=== PATIENT | female | born 2000 | race Two or more races ===

== ENCOUNTER 2024-04-08 11:19 | Emergency (ER) | payer MEDICAID, SELFPAY ==
[2024-04-08 11:20] VITALS: BMI 32.5
[2024-04-08 11:41] VITALS: BP 159/99; PULSE 94; RESP 17; TEMP 36.8; O2SAT 100
--- NOTE | 2024-04-08 11:47 | PD.EDBACK ---
ED Back Injury Pain RME/HPI General Chief Complaint: Back Pain/Injury Stated Complaint: BACK PAIN Time Seen by Provider: 04/08/24 11:32 Arrival date/time: 04/08/24 11:19 23 year old female present to emergency room with c/o of ongoing low back/flank pain for 2 days. denies any injury or trauma. Denies new trauma No fevers No unexplained weight loss of night sweats No recent surgeries or recurrent bacterial infections No IVDU Patient is not immunocompromised Denies any new focal neurological deficits or new motor weakness Denies bowel or bladder incontinence or saddle anesthesia LOCATION: diffuse low back and flanks SEVERITY: Symptoms are described as being severe with limitations on activities of daily living QUALITY: Symptoms are described as being dull or achy CONTEXT: The patient is unable to identify any inciting events. DURATION/TIMING: The symptoms started approximately 2 day ago and have been constant this then. ASSOCIATED SYMPTOMS: The patient is unable to identify any other associated symptoms. MODIFYING FACTORS: The patient is unable to identify any alleviating or aggravating symptoms. PERTINENT ROS: no fevers, no IVDU, denies any ripping or tearing sensations, no associated abdominal pain, no focal neurological deficits and denies any saddle anesthesia, and no bowel or bladder incontinence REVIEW OF SYSTEMS: See History of Present Illness - with the exception of those mentioned in the history of present illness, all other systems reviewed and reported as negative GENERAL: In general the patient is awake, interactive, in an emergency department gurney. HEAD/EYES/EARS/NOSE/THROAT: normo-cephalic, atraumatic, mucus membranes are moist, anicteric, palpebral conjunctiva is pink, trachea is midline. CARDIOVASCULAR: regular rate and regular rhythm, no murmurs, heart sounds are not distant, strong pulses in all four extremities that are equal and symmetric bilateral upper and lower extremities, normal capillary refill. CHEST/PULMONARY: normal chest rise and fall, good air movement, clear to auscultation bilaterally, normal inspiratory to expiratory ratios without evidence of respiratory distress. NECK: No midline/Paraspinal tenderness, no step off ROM/Strenght intact No Kernig and bruzinski sign. No trauma ABDOMEN: soft, not tender, no masses appreciated BACK: right flank tenderness, no rash/bruising noted. normal range of motion without pain. NEUROLOGICAL: cranio-facial features are symmetric, moves all four extremities equally without obvious limitations or weakness. EXTREMITY: no tenderness to palpation over the long bones or large joints of the bilateral upper and lower extremities, no joint swelling, no joint erythema, no signs of trauma, no unilateral leg swelling and no peripheral edema. SKIN: warm, dry, well-perfused, no jaundice, no rash, no telangiectasias or petechia. PSYCH: calm, cooperative, no evidence of psychosis or agitation Related Data Home Medications ?Medication ?Instructions ?Recorded ?Confirmed folic acid 1 mg tablet 1 mg PO QDAY 09/28/23 09/28/23 vit no.95-ferrous 1 tab PO QDAY 09/28/23 09/28/23 fumarate 28 mg-folic acid 800 mcg tablet () Previous Rx's ?Medication ?Instructions ?Recorded docusate sodium 100 mg capsule 100 mg PO BID #60 caps 09/29/23 (Colace) ibuprofen 800 mg tablet 800 mg PO Q6H PRN pain #120 tabs 09/29/23 lanolin 50 % topical ointment 1 applic topical TID PRN skin 09/29/23 irritation #15 tubes cyclobenzaprine 10 mg tablet 10 mg PO BID PRN muscle spasm #30 04/08/24 tabs lidocaine 5 % topical patch 1 patch topical QDAY #30 ea 04/08/24 methylprednisolone 4 mg tablets in 4 mg PO .as directed #21 tabs 04/08/24 a dose pack (Medrol (Javier)) naproxen 500 mg tablet 500 mg PO BID PRN pain #30 tabs 04/08/24 Allergies Allergy/AdvReac Type Severity Reaction Status Date / Time No Known Allergies Allergy Verified 04/08/24 11:20 Course Quality Measures none Orders Category Date Time Status XR lumbar spine 2-3V Stat Exams 04/08/24 12:49 Completed CBC Stat Lab 04/08/24 12:01 Completed CMP [Comprehensive Metabolic Panel] Stat Lab 04/08/24 12:01 Completed HCG,Qualitative Serum Stat Lab 04/08/24 12:01 Completed Lipase Stat Lab 04/08/24 12:01 Completed UA [Urinalysis] Stat Lab 04/08/24 11:50 Completed Urine Culture Stat Lab 04/08/24 11:50 Received Ketorolac Inj [Toradol Inj] Med 04/08/24 11:45 Discontinued 30 mg IM X1 ONE Lidocaine 5% Patch [Lidoderm 5% Patch] Med 04/08/24 11:45 Discontinued 1 patch TOP X1 ONE Reevaluation(s) Reevaluation #1: pt is feeling better, advised to follow up with PCP for outpatient physical therapy or possible MRI as need conservative treatment rx: flexeril, lidocaine, naproxen and medro dose javier pt is comfortable to go home Vital Signs Vital signs: Vital Signs Temperature 98.2 F 04/08/24 11:41 Pulse Rate 94 04/08/24 11:41 Respiratory Rate 17 04/08/24 11:41 Blood Pressure 159/99 H 04/08/24 11:41 Pulse Oximetry (%) 100 04/08/24 11:41 Oxygen Delivery Method Room Air 04/08/24 11:41 Back Pain / Injury MDM Narrative MDM Narrative:: Patient is admitted to the Emergency Department and evaluated. Patient appears well, is non-toxic and well hydrated. Patient appears to have an uncomplicated lumbar cervical strain. Pt. has no neurological deficits. No bowel or bladder dysfunction. Denies numbness in saddle region. Normal gait. No signs of cauda equina. Patient has no malignancy or other comorbidities. No signs of epidural abscess. No abdominal pain or pulsatile mass and has good peripheral pulses. I do not suspect AAA. Patient is given supportive home care instructions for rest, ice, use of NSAIDS, RX meds if indicated. Patient instructed to return to ER for any symptoms that are concerning to them. Patient data External records reviewed:: None Clinical information provided by:: patient Social determinants that could affect healthcare access:: none Patient has the following chronic illnesses:: none How is presenting disease/condition affected by chronic disease/condition?: no chronic disease Evaluation data The following diagnostics were reviewed and interpreted by me:: lab results and radiology exam(s) Lab and/or radiology exams considered but not ordered:: none Interpretation Summary: cbc/cmp/ua/hcg wnl xray: Satisfactory alignment lumbar vertebral bodies Mild disc narrowing L4-L5 Moderate disc narrowing L5-S1 No spondylolisthesis IMPRESSION: Mild disc narrowing L4-L5 Moderate disc narrowing L5-S1 Medications / Prescriptions Medications or Prescriptions considered but not ordered:: none Medication administrations:: Medication Administration History Discontinued Medications Ketorolac Tromethamine (Ketorolac Inj 60 Mg/2 Ml Vial) 30 mg IM X1 ONE Stop: 04/08/24 11:46 Last Admin: 04/08/24 12:06 Dose: 30 mg Documented By: ALICE Comments: WASTE 30 MG Lidocaine (Lidocaine 5% 1 Patch) 1 patch TOP X1 ONE Stop: 04/08/24 11:46 Last Admin: 04/08/24 12:07 Dose: 1 patch Documented By: ALICE Comments: MIDDLE LOWER BACK as state above Consultations Consultation(s) initiated? (list below): No Diagnosis Differential diagnosis back pain/injury: lumbar radiculopathy, sciatica, strain of lumbar region, renal colic and other (UTI) Most likely diagnosis given after review of the tests above:: back pain Admission Indicated Admission indicated?: not indicated Admission Request Was there a request for admission?: No Disposition Plan Disposition Plan: Discharge Discharge Attestation Discharge Attestation: The patient and all family members were given an opportunity to ask questions and understood the discharge instructions. Discharge instructions specifically effects, indications for sooner follow up or return to the emergency department, and the expected course of current diagnosis. Patient condition: Stable Discharge Plan Plan Patient Disposition: HOME (Self Care) Health Concerns: Follow with PMD as directed Take tylenol as need Return to ED if sx worsen Prescriptions/Referrals Prescriptions/Med Rec: New cyclobenzaprine 10 mg tablet 10 mg PO BID PRN (Reason: muscle spasm) Qty: 30 0RF lidocaine 5 % adhesive patch,medicated 1 patch topical QDAY Qty: 30 0RF Rx Instructions: leave on most painful area for up to 12 hrs naproxen 500 mg tablet 500 mg PO BID PRN (Reason: pain) Qty: 30 0RF methylprednisolone [Medrol (Javier)] 4 mg tablets,dose pack 4 mg PO .as directed Qty: 21 0RF No Action folic acid 1 mg tablet 1 mg PO QDAY Patient Comments: TAKE 1 TABLET BY MOUTH EVERY DAY PNV cmb#95-ferrous fumarate-FA [] 28 mg iron- 800 mcg tablet 1 tab PO QDAY Patient Comments: TAKE 1 TABLET BY MOUTH EVERY DAY ibuprofen 800 mg tablet 800 mg PO Q6H MDD 4 PRN (Reason: pain) Qty: 120 0RF docusate sodium [Colace] 100 mg capsule 100 mg PO BID Qty: 60 0RF lanolin 50 % ointment 1 applic topical TID PRN (Reason: skin irritation) Qty: 15 0RF Referrals: No Primary/Family,Physician [Primary Care Provider] - In 1 week Problem List Clinical Impression: Back pain Patient/Caregiver Discharge Instructions Education Materials: Anatomy of a Normal Spine Print Language: Turkmen Stand Alone Forms: Pinky Award Info., Patient Portal Info Letter
[2024-04-08 12:01] LABS: Collection Type, Urine Voided
[2024-04-08] MEDS: KETOROLAC INJ 60 MG/2 ML VIAL 30 MG IM (12:06)
[2024-04-08] MEDS: LIDOCAINE 5% 1 PATCH TOP (12:07)
[2024-04-08 12:11] LABS: Basophils % (Auto) 1 % (0-2.5); Eosinophils # (Auto) 0.1 Thou/mm3 (0.0-0.5); Eosinophils % (Auto) 2 % (0-10); Hematocrit 39.7 % (36.0-46.0); Hemoglobin 12.5 g/dL (12.0-16.0); Immature Granulocytes % (Auto) 1 % (0-0); Immature Granulocytes Auto 0.04 Thou/mm3 (0.00-0.00); Lymphocytes # (Auto) 2.4 Thou/mm3 (1.0-4.8); Lymphocytes % (Auto) 27 % (10-50); Mean Corpuscular HGB Conc 31.5 g/dl (31.0-37.0); Mean Corpuscular Hemoglobin 24.7 pg (25.0-35.0); Mean Corpuscular Volume 79 fL (80-100); Monocytes # (Auto) 0.7 Thou/mm3 (0.0-0.8); Monocytes % (Auto) 8 % (0-12); Neutrophils # (Auto) 5.6 Thou/mm3 (1.8-7.7); Neutrophils % (Auto) 63 % (37-80); Nucleated Red Blood Cell % 0 /100 WBC (0); Platelet Count 313 Thou/mm3 (140-440); RDW Standard Deviation 41.2 fL (36.4-46.3); Red Blood Count 5.06 Miln/mm3 (4.00-5.20); White Blood Count 8.9 Thou/mm3 (3.6-11.0)
[2024-04-08 12:14] LABS: Bilirubin,Urine Negative (Negative); Blood,Urine Negative (Negative); Clarity,Urine Clear (Clear/Hazy); Color,Urine Colorless (Lt Yel-Yel); Glucose, Urine Negative (Negative); Ketones,Urine Negative (Negative); Leukocyte Esterase,Urine Positive (Negative); Nitrite,Urine Negative (Negative); PH,Urine 6.5 (5.0-7.0); Protein,Urine Negative (Neg - Trace); RBC,Urine 3 /hpf (0-3); Specific Gravity,Urine 1.006 (1.001-1.035); Squamous Epithelial Cell,Urine 4 /hpf (0-5); Urobilinogen,Urine Negative mg/dL (0.0-1.0); WBC,Urine 8 /hpf (0-5)
[2024-04-08 12:32] LABS: Alanine Aminotransferase 17 U/L (10-49); Albumin/Globulin Ratio 1.4 (1.2-2.2); Alkaline Phosphatase 132 U/L (46-116); Anion Gap 8 (7-16); Aspartate Amino Transferase 14 U/L (0-34); BUN/Creatinine Ratio 17 Ratio (12-20); Bilirubin,Total 0.3 mg/dL (0.3-1.2); Blood Urea Nitrogen 12 mg/dL (9-23); Calcium 9.8 mg/dL (8.3-10.6); Calcium (Corrected) 9.8 mg/dL (8.5-10.1); Chloride 104 mMol/L (98-107); Creatinine (Component) 0.7 mg/dL (0.6-1.3); Estimated Creatinine Clearance 133.9 mL/min (>60); Globulin 3.6 gm/dL (2.3-3.5); Glucose 98 mg/dL (74-106); Lipase 31 U/L (12-53); Osmolality,Calculated 279 (275-295); Potassium 4.1 mMol/L (3.4-5.1); Sodium 140 mMol/L (136-145); Total Protein 8.6 gm/dL (5.7-8.2); eGFR > 60 See Note
[2024-04-08 12:39] LABS: HCG,Qualitative Serum Negative
--- NOTE | 2024-04-08 12:49 | XR_ITS ---
Examination: Lumbar spine 3 views Technique one AP lateral coned lateral lower lumbar spine 3 views Exam date and time: April 08, 2024 1318 hours INDICATIONS: Lower back pain today. FINDINGS: Satisfactory alignment lumbar vertebral bodies Mild disc narrowing L4-L5 Moderate disc narrowing L5-S1 No spondylolisthesis IMPRESSION: Mild disc narrowing L4-L5 Moderate disc narrowing L5-S1
== END 2024-04-08 14:08 | disposition home or self-care (01) ==
PROVIDERS: Physician Assistant; Emergency Provider Emergency Medicine
DX: M48.07 Spinal stenosis, lumbosacral region (principal)
CPT/HCPCS: 36415; 72100; 80053; 81001; 83690; 84703; 85025; 87077; 87086; 87186; 96372; 99283; J1885; Z7610

== ENCOUNTER → 2024-08-31 | Outpatient (CLI) | payer OTHER, SELFPAY ==
[2024-08-31 12:59] LABS: Hepatitis B Surface Antigen Non Reactive (Non React)
[2024-08-31 13:06] LABS: Syphilis Nonreactive (Nonreactive)
[2024-09-05 17:51] LABS: HCV RNA, PCR <15 NOT DETECTED IU/mL
[2024-09-07 06:45] LABS: HCV RNA, PCR Log IU <1.18 NOT DETECTED Log IU/mL; HIV Ag/Ab, 4th Gen NON-REACTIVE
== END | disposition home or self-care (01) ==
LOC: COPL 11:39
PROVIDERS: Referring Provider Physician Assistant; Visit Provider Physician Assistant
DX: Z77.21 Contact with and (suspected) exposure to potentially hazardous body fluids (principal); W46.1XXA Contact with contaminated hypodermic needle, initial encounter
CPT/HCPCS: 36415; 86780; 87340; 87389; 87522

== ENCOUNTER → 2025-01-11 | Outpatient (CLI) | payer MEDICAID, SELFPAY ==
--- NOTE | 2025-01-11 | XR_ITS ---
EXAMINATION: PA lateral chest 2 views TECHNIQUE: Upright PA lateral chest 2 views Date and time: January 11, 2025, 1251 hours INDICATION: Coughing shortness of breath beginning 2 days ago. FINDINGS: Normal heart size Lungs are clear. The Oc structures are intact IMPRESSION: No active disease
== END | disposition home or self-care (01) ==
LOC: CDIM 11:41
DX: R05.9 Cough, unspecified (principal)
CPT/HCPCS: 71046

== ENCOUNTER 2025-01-14 22:34 | Emergency (ER) | payer MEDICAID, SELFPAY ==
[2025-01-14 22:35] VITALS: BMI 30.9
[2025-01-14 23:07] VITALS: BP 129/84; PULSE 85; RESP 22; TEMP 36.7; O2SAT 96
--- NOTE | 2025-01-14 23:23 | XR_ITS ---
EXAMINATION: PA chest single view TECHNIQUE: Upright PA chest single view Date and time: January 15, 2025, 1231 hours INDICATIONS: Coughing shortness of breath body aches 4 days. FINDINGS: Normal heart size Lungs are clear. Osseous structures are intact IMPRESSION: No active disease
[2025-01-14 23:36] VITALS: PULSE 92
[2025-01-14] MEDS: ALBUTEROL RT 2.5 MG/3 ML NEBU INH (23:36)
[2025-01-14 23:40] VITALS: PULSE 99; RESP 16; O2SAT 99
--- NOTE | 2025-01-14 23:41 | PC.NURSE ---
MD LOMAX Verbally approve pt to take additional 60mg dose after taking 40 mg dose of prednisone at home due to pt being
--- NOTE | 2025-01-15 00:11 | PD.EDURI ---
Upper Respiratory Inf. RME/HPI General Chief Complaint: Upper Respiratory Infection Stated Complaint: COUGH, SOB Time Seen by Provider: 01/14/25 23:20 Arrival date/time: 01/14/25 22:34 RME / HPI RME / HPI Narrative: CC: cough and body aches. Patient is a 24 year old female with no past past medical history who presented to the emergency room via private vehicle with chief complain of worsening cough and body aches. Patient stated symptoms have been on going for the past 5 days. Cough has increased in frequency, productive, and appears green. No blood in sputum. Complaining of chills. Patient denied chest pain. No recent sick contacts. Home testing for COVID and Flu negative. No diarrhea. Related Data Home Medications ?Medication ?Instructions ?Recorded ?Confirmed folic acid 1 mg tablet 1 mg PO QDAY 09/28/23 09/28/23 vit no.95-ferrous 1 tab PO QDAY 09/28/23 09/28/23 fumarate 28 mg-folic acid 800 mcg tablet () Previous Rx's ?Medication ?Instructions ?Recorded docusate sodium 100 mg capsule 100 mg PO BID #60 caps 09/29/23 (Colace) lanolin 50 % topical ointment 1 applic topical TID PRN skin 09/29/23 irritation #15 tubes cyclobenzaprine 10 mg tablet 10 mg PO BID PRN muscle spasm #30 04/08/24 tabs lidocaine 5 % topical patch 1 patch topical QDAY #30 ea 04/08/24 methylprednisolone 4 mg tablets in 4 mg PO .as directed #21 tabs 04/08/24 a dose pack (Medrol (Javier)) naproxen 500 mg tablet 500 mg PO BID PRN pain #30 tabs 04/08/24 azithromycin 500 mg tablet See Rx Instructions PO .COMPLEX #3 01/15/25 (Zithromax TRI-JAVIER) tabs Allergies Allergy/AdvReac Type Severity Reaction Status Date / Time No Known Allergies Allergy Verified 01/14/25 22:36 Review of Systems Review of Systems Narrative Review of Systems: General appearance: NO weight change, Yes fatigue, NO weakness, NO fever, Yes chills, NO night sweats, Yes cough-productive, Skin: NO rash, NO itching, NO sores, NO moles HEENT: NO Trauma, NO nausea, NO vomiting, NO visual changes, NO blurry vision, NO double vision, NO tinnitus, NO vertigo, NO ear discharge, NO rhinorrhea, NO stuffiness, NO sneezing, NO allergy, NO epistaxis. NO Hoarseness, NO sore throat, NO swollen neck. Cardiac: NO Palpitations, NO dyspnea on exertion, NO orthopnea, NO paroxysmal nocturnal dyspnea, NO edema Respiratory: NO Shortness of Breath, NO Wheezing, NO Cough, NO Sputum, NO hemoptysis GI:NO appetite, NO nausea, NO vomiting, NO dysphagia, NO changes in bowel frequency, NO stool color, NO diarrhea, NO constipation, NO hemetemesis, NO hemorrhoids, NO melena, NO hematechezia, NO abdominal pain, NO jaundice Renal: NO frequency, NO hesitancy, NO urgency, NO hematuria, NO nocturia, NO incontinence MSK: NO muscle weakness, NO gout, NO arthritis, NO muscle stiffness Neuro: NO headaches, NO tremors, NO weakness, NO paralysis, NO seizures, NO loss of consciousness, NO numbness. Hem: NO anemia, NO easy bruising/bleeding, NO petechiae, NO purpura Endo: NO heat/cold intolerance, NO excessive sweating, NO polyuria, NO polydipsia, NO polyphagia, NO thyroid problems, NO diabetes Pysch: NO mood, NO anxiety, NO depression ED Exam Narrative Physical exam: General Appearance: Alert & Oriented X3, well-nourished female who is lying in bed in no acute distress-coughing HEENT: Skull symmetrical and atraumatic. Conjunctivae pink and moist. Pupils equal, round, reactive to light and accommodation (PERRL). External ear without lesion or discharge. Straight, nares patient, mucosa pink, no discharge. Cardio: Normal Rate and Rhythm with S1 and S2 heart sounds. No murmurs or extra heart sounds auscultated. No bruits on carotid auscultation. No peripheral edema or cyanosis. Lungs: Symmetric with good expansion. Chest and back non-tender. Breath sounds vesicular without crackles, wheezing or rhonchi Abdomen: Non-tender, Non-distended, Normal Reactive Bowel Sounds Neuro: Alert, cooperative, oriented to person, place, and time. Speech clear. CN grossly intact. Upper motor strength 5/5 and Lower motor strength 5/5. Sensation intact. Course Quality Measures none Orders Category Date Time Status Bedside COVID-19 Antigen Test NOW Care 01/14/25 23:21 Completed XR chest 1V portable Stat Exams 01/14/25 23:23 Taken Influenza A & B Rapid Panel Stat Lab 01/14/25 23:36 Completed ALBUTEROL RT 3ml [Proventil Rt 3ml] Med 01/14/25 23:22 Discontinued 2.5 mg INH X1 ONE predniSONE Med 01/14/25 23:22 Discontinued 60 mg PO X1 ONE Vital Signs Vital signs: Vital Signs Temperature 98.1 F 01/14/25 23:07 Pulse Rate 85 01/14/25 23:07 Respiratory Rate 22 H 01/14/25 23:07 Blood Pressure 129/84 01/14/25 23:07 Pulse Oximetry (%) 96 01/14/25 23:07 Oxygen Delivery Method Room Air 01/14/25 23:07 Upper Respiratory Infection Patient data External records reviewed:: [facility] previous records Clinical information provided by:: patient Social determinants that could affect healthcare access:: none Patient has the following chronic illnesses:: None How is presenting disease/condition affected by chronic disease/condition?: no chronic disease Evaluation data The following diagnostics were reviewed and interpreted by me:: lab results and radiology exam(s) Lab and/or radiology exams considered but not ordered:: None Interpretation Summary: Patient is a 24 year old female with no past medical history who is currently complaining of body aches,chills, and productive cough. Flu and COVID negative. Chest x-ray noted have some bibasilar pneumonia. #Pneumonia,CAP Medications / Prescriptions Medications or Prescriptions considered but not ordered:: None Medication administrations:: Medication Administration History Discontinued Medications Albuterol (Albuterol Rt 2.5 Mg/3 Ml Nebu) 2.5 mg INH X1 ONE Stop: 01/14/25 23:23 Last Admin: 01/14/25 23:36 Dose: 2.5 mg Documented By: KASIE Prednisone (Prednisone 20 Mg Tablet) 60 mg PO X1 ONE Stop: 01/14/25 23:23 Last Admin: 01/14/25 23:40 Dose: 60 mg Documented By: JODY same as above Consultations Consultation(s) initiated? (list below): No Diagnosis Upper Respiratory Differential Diagnosis: upper respiratory infection, viral infection and other (CAP ) Most likely diagnosis given after review of the tests above:: Patient is a 24 year old female with no past medical history who is currently complaining of body aches,chills, and productive cough. Flu and COVID negative. Chest x-ray noted have some bibasilar pneumonia. #Pneumonia,CAP #Acute respirtory infection - The patient's plan was discussed with attending Dr. Nancy Enamorado MD PGY2 Internal Medicine Admission Indicated Admission indicated?: not indicated Admission Request Was there a request for admission?: No Disposition Plan Disposition Plan: Discharge Discharge Attestation Discharge Attestation: The patient and all family members were given an opportunity to ask questions and understood the discharge instructions. Discharge instructions specifically effects, indications for sooner follow up or return to the emergency department, and the expected course of current diagnosis. Patient condition: Stable Discharge Plan Plan Patient Disposition: HOME (Self Care) Patient condition on transfer: Stable Health Concerns: Instructions: -You have been diagnosed with pneumonia given your chest x-ray. Please COVID/Flu negative. Please follow up with your [place]/valley fever results. -Please take antibiotics for your pneumonia, Azithromycin 500 mg orally once daily for the next three days. -Please stay hydrated -Please follow up with your primary care provider within one week of discharge -If your symptoms worsen,please seek immediate medical attention and return to your nearest emergency room -If you do not have a primary care provider, [facility] [address], [place] [address], Prescriptions/Referrals Prescriptions/Med Rec: New azithromycin [Zithromax TRI-JAVIER] 500 mg tablet See Rx Instructions .ROUTE .COMPLEX Qty: 3 0RF Rx Instructions: For 500 mg dose pack: take 500 mg once daily for 3 days Continued cyclobenzaprine 10 mg tablet 10 mg PO BID PRN (Reason: muscle spasm) Qty: 30 0RF lidocaine 5 % adhesive patch,medicated 1 patch topical QDAY Qty: 30 0RF Rx Instructions: leave on most painful area for up to 12 hrs naproxen 500 mg tablet 500 mg PO BID PRN (Reason: pain) Qty: 30 0RF methylprednisolone [Medrol (Javier)] 4 mg tablets,dose pack 4 mg PO .as directed Qty: 21 0RF folic acid 1 mg tablet 1 mg PO QDAY Patient Comments: TAKE 1 TABLET BY MOUTH EVERY DAY PNV no.95-ferrous fumarate-FA [] 28 mg iron- 800 mcg tablet 1 tab PO QDAY Patient Comments: TAKE 1 TABLET BY MOUTH EVERY DAY docusate sodium [Colace] 100 mg capsule 100 mg PO BID Qty: 60 0RF lanolin 50 % ointment 1 applic topical TID PRN (Reason: skin irritation) Qty: 15 0RF Discontinued ibuprofen 800 mg tablet 800 mg PO Q6H MDD 4 PRN (Reason: pain) Qty: 120 0RF Referrals: No Primary/Family,Physician [Primary Care Provider] - In 1 week Problem List Clinical Impression: Pneumonia, Acute respiratory infection Patient/Caregiver Discharge Instructions Discharge Activity: activity as tolerated Education Materials: ED Pneumonia (Adult) Print Language: Slovenian Stand Alone Forms: Pinky Award Info., Patient Portal Info Letter
[2025-01-15 00:19] LABS: Influenza A Ag Negative; Influenza B Ag Negative
== END 2025-01-15 01:05 | disposition home or self-care (01) ==
PROVIDERS: Emergency Provider Emergency Medicine
DX: O99.519 Diseases of the respiratory system complicating pregnancy, unspecified trimester (principal); J18.9 Pneumonia, unspecified organism
CPT/HCPCS: 71045; 87502; 87635; 94640; 99283; J7512